=== PATIENT | female | born 1980 | race Caucasian/White ===

== ENCOUNTER → 2024-07-11 | Outpatient (CLI) | payer BC ==
[2024-07-11 10:31] LABS: BILIRUBIN Negative (Negative); BLOOD Trace-Lysed (Negative); CLARITY Clear (Clear); COLOR Yellow (Yellow); GLUCOSE Negative (Negative); KETONE Negative (Negative); LEUKO ESTERASE Negative (Negative); NITRITE Negative (Negative); PH 6.5 (4.5-8.0); SPECIFIC GRAVITY 1.015 (1.001-1.030); UROBILINOGEN 0.2 E.U./dl (0.0-1.0)
[2024-07-11 10:31] LABS: BASO % 0.3 % (0.0-1.0); EOS # 0.4 10*3/uL (0.0-0.4); EOS % 5.8 % (1.0-4.0); HEMATOCRIT 41.7 % (37.0-47.0); MEAN CELL VOLUME 90.3 fl (81.0-99.0); MEAN CORPUSCULAR HGB 30.3 pg (27.0-31.0); MEAN CORPUSCULAR HGB CONC 33.6 g/dl (33.0-37.0); MEAN PLATELET VOLUME 10.3 fl (9.6-12.3); MONO # 0.6 10*3/uL (0.1-1.0); MONO % 8.5 % (3.0-9.0); NEUT # 4.9 10*3/uL (2.3-7.9); NEUT % 65.6 % (47.0-73.0); PLATELET COUNT AUTOMATED 296 10*3/uL (130-400); RED BLOOD COUNT 4.62 10*6/uL (4.10-5.10); RED CELL DISTRI WIDTH 12.6 % (0-14.5); WHITE BLOOD COUNT 7.4 10*3/uL (4.8-10.8)
[2024-07-11 10:57] LABS: ALKALINE PHOSPHATASE 62 U/L (46-116); BUN 11 mg/dl (9-23); CHLORIDE 104 mmol/L (98-107); CHOLESTEROL 230 mg/dL (<200); GAMMA GLUTAMYL TRANSPEPTIDASE 54 U/L (0-73); LDL CHOLESTEROL 154 mg/dL (9-159); POTASSIUM 4.2 mmol/L (3.4-5.1); SGPT/ALT 17 U/L (5-49); T3 UPTAKE 31.7 % (22.4-36.7); THYROXINE (T4) TOTAL 6.3 ug/dl (4.5-10.9); TOTAL PROTEIN 7.8 gm/dL (6.0-8.0); TRIGLYCERIDES 93 mg/dl (<150); URIC ACID 4.2 mg/dL (3.1-7.8)
[2024-07-11 11:03] LABS: B-hCG (QUALITATIVE) NEGATIVE (NEGATIVE); BETA-HCG, QUANT < 3.0 mIU/mL (3-10)
[2024-07-11 11:22] LABS: VITAMIN D, 25-HYDROXY 41.3 ng/mL (30-100)
[2024-07-12 08:07] LABS: SEX HORMONE BINDING GLOBULIN 29.6 nmol/L (24.6-122.0)
[2024-07-14 14:06] LABS: ANTI-DSDNA ANTIBODIES 3 IU/mL (0-9)
[2024-07-15 05:06] LABS: HUMAN GROWTH HORMONE 0.1 ng/mL (0.0-10.0)
[2024-07-15 15:06] LABS: ESTROGENS, TOTAL 128 pg/mL (.)
== END | disposition home or self-care (01) ==
LOC: LAB 10:00
PROVIDERS: ATTEND Family Medicine
DX: R79.89 Other specified abnormal findings of blood chemistry (principal); R53.83 Other fatigue; E55.9 Vitamin D deficiency, unspecified; R74.8 Abnormal levels of other serum enzymes

== ENCOUNTER → 2024-07-28 | Outpatient (CLI) | payer BC | END | disposition home or self-care (01) | LOC: RAD 09:20 | PROVIDERS: ATTEND Family Medicine | DX: M19.012 Primary osteoarthritis, left shoulder (principal); M25.512 Pain in left shoulder ==

== ENCOUNTER → 2024-08-08 | Outpatient (CLI) | payer BC | END | disposition home or self-care (01) | LOC: MRI 08-06 10:00 | PROVIDERS: ATTEND Family Medicine | DX: M75.122 Complete rotator cuff tear or rupture of left shoulder, not specified as traumatic (principal); M19.012 Primary osteoarthritis, left shoulder; M25.512 Pain in left shoulder; M75.52 Bursitis of left shoulder ==